=== PATIENT | female | born 1980 | race Caucasian/White ===

== ENCOUNTER → 2018-03-16 | Outpatient (CLI) | payer BC ==
--- NOTE | 2018-03-16 10:32 | XR ---
Left hip HISTORY: Pain, strain 2 views of the left hip Coverage of the acetabulum may be indicative of pincer type femoral acetabular impingement. Alignment and bone mineralization are maintained. Joint space within normal limits. No evident mass. No fractu re or dislocation. IMPRESSION: Correlate for femoral acetabular impingement.
== END | disposition home or self-care (01) ==
LOC: RADXRMAIN 08:19
PROVIDERS: ATTEND Internal Medicine
DX: M25.552 Pain in left hip (principal)
CPT/HCPCS: 73502

== ENCOUNTER → 2018-12-25 | Outpatient (CLI) | payer BC ==
--- NOTE | 2018-12-25 12:52 | CT ---
EXAMINATION TYPE: CT brain w con DATE OF EXAM: 12/25/2018 COMPARISON: None HISTORY: sudden onset headache x9 days CT DLP: 809.2 mGycm Automated exposure control for dose reduction was used. CONTRAST: CT scan of the head is performed with IV Contrast, patient injected with 100 mL of Isovue 300. FINDINGS: There is no abnormal enhancing mass or midline shift identified. The ventricles and sulci are within normal limits in size. The globes are intact and the visualized sinuses are clear. Partially empty sella turcica. IMPRESSION: 1. There is a partially empty sella turcica. This can occasionally be seen with benign increased intr acranial pressure. Recommend follow-up MRI.
== END ==
LOC: RADCTMAIN 11:30
PROVIDERS: ATTEND Internal Medicine
DX: E23.6 Other disorders of pituitary gland (principal)
CPT/HCPCS: 70460; Q9967

== ENCOUNTER 2018-12-26 11:55 | Emergency (ER) | payer BC ==
[2018-12-26 12:13] VITALS: TEMP 98.3
[2018-12-26] MEDS ORDERED: KETOROLAC 30 MG/ML 1 ML VIAL IVP STA (12:58)
[2018-12-26] MEDS ORDERED: SODIUM CHLORIDE 0.9% 500 ML 500 ML IV STA (12:58)
[2018-12-26] MEDS ORDERED: diphenhydrAMINE 50 MG/ML 1 ML VIAL IVP STA (12:58)
[2018-12-26] MEDS ORDERED: HYDROmorphone 0.5 MG/0.5 ML SYRINGE IVP STA (12:58)
[2018-12-26] MEDS ORDERED: METOCLOPRAMIDE 5 MG/ML 2 ML VIAL IVP STA (12:58)
[2018-12-26] MEDS ORDERED: LORazepam 2 MG/ML INJ IV STA (13:48)
--- NOTE | 2018-12-26 14:01 | ED ---
Headache HPI <Alfonso Damon - Last Filed: 12/26/18 16:03> - General Mode of arrival: ambulatory Limitations: no limitations <Hannah Samuels - Last Filed: 12/26/18 16:23> - General Chief Complaint: Headache Stated Complaint: Headache Time Seen by Provider: 12/26/18 12:17 - History of Present Illness Initial Comments: 38-year-old female who denies past medical history presenting today for chief complaint of headache 10 days. Patient states she has had a headache for the past 10 days. She states she has had periodic headaches on and off for years however nothing this persistent. She states that she was evaluated yesterday at her primary care provider office for the headache or CT was obtained. She states she was told she had leaking fluid and was told to come to the emergency department for further evaluation. Imaging studies obtained yesterday were reviewed, findings consistent with partially empty sella turcica with the frontal diagnosis of benign increased ICP. Patient denies any changes in the characteristic of headache throughout the 10 days, she states is throbbing in the posterior aspect of her head towards the back of her eyes. She has a trauma vomiting. She denies neck stiffness, fever chills night sweats or upper respiratory symptoms. Patient states that she is occasionally nauseous denies diplopia. Denies any muscle weakness or loss of sensation. She states she has been taking Motrin and Fioricet and Imitrex and even Valium for relief, she states none of these medications have seemed to help. She states she did have a small labs and symptoms Tuesday after taking a Fioricet however symptoms returned later that evening. Remaining review of systems negative. Upon arrival patient appears uncomfortable holding hands over eyes. (Hannah Samuels) - Related Data Home Medications Medication Instructions Recorded Confirmed [place]/APAP/Caf/Cod [id number] 1 cap PO TID PRN 12/26/18 12/26/18 [Fioricet w/Cod [id number]] Ibuprofen 800 mg PO TID PRN 12/26/18 12/26/18 Ondansetron Odt [Zofran ODT] 4 mg PO BID PRN 12/26/18 12/26/18 SUMAtriptan SUCCINATE [Imitrex] 50 mg PO DAILY PRN 12/26/18 12/26/18 predniSONE 20 mg PO DAILY 12/26/18 12/26/18 Allergies Allergy/AdvReac Type Severity Reaction Status Date / Time No Known Allergies Allergy Verified 12/26/18 13:54 Review of Systems ROS Other: All systems not noted in ROS Statement are negative. <Alfonso Damon - Last Filed: 12/26/18 16:03> ROS Other: All systems not noted in ROS Statement are negative. <Hannah Samuels - Last Filed: 12/26/18 16:23> ROS Statement: Those systems with pertinent positive or pertinent negative responses have been documented in the HPI. Past Medical History Past Medical History: No Reported History History of Any Multi-Drug Resistant Organisms: None Reported Past Surgical History: Appendectomy, Cholecystectomy, Hysterectomy, Orthopedic Surgery Additional Past Surgical History / Comment(s): (L) hip replacement, facial reconstruction Past Psychological History: No Psychological Hx Reported Smoking Status: Current every day smoker Past Alcohol Use History: Rare Past Drug Use History: None Reported <Hannah Samuels - Last Filed: 12/26/18 16:23> General Exam Limitations: no limitations <Hannah Samuels - Last Filed: 12/26/18 16:23> - General Exam Comments Initial Comments: General: The patient is awake and alert, in no distress, and does not appear acutely ill. Eye: +3 mm pupils are equal, round and reactive to light, extra-ocular movements are intact. No nystagmus. There is normal conjunctiva bilaterally. No signs of icterus. Ears, nose, mouth and throat: There are moist mucous membranes and no oral lesions. Neck: The neck is supple, there is no tenderness or JVD. Cardiovascular: There is a regular rate and rhythm. No murmur, rub or gallop is appreciated. Respiratory: Lungs are clear to auscultation, respirations are non-labored, breath sounds are equal. No wheezes, stridor, rales, or rhonchi. Gastrointestinal: Soft, non-distended, non-tender abdomen without masses or organomegaly noted. There is no rebound or guarding present. Musculoskeletal: Normal ROM, no tenderness. Strength 5/5. Sensation intact. Pulses equal bilaterally 2+. Neurological: A&O x 3. CN II-XII intact, memory intact to immediately, intermediate and retirement recall. Able to follow simple verbal. Able to name a common object (pen). High quality, labial (pa) and lingual (la) speech. Low quality posterior pharynx/larynx (ga) voice sounds. Able to express general knowledge. No hemineglect or inattention noted. Finger agnosia (-) and spatially oriented. Light touch and temperature sensation present over the face, chest, abdomen, back, UE bilaterally, and LE bilaterally. Able to localize point during point localization b/l and extinction. No visible bulk atrophy, hypertrophy, fasciculations, or myoclonus of the UE or LE b/l. Full PROM in UE and LE b/l. Bilateral muscle strength 5/5 for the following muscles: deltoid, biceps, triceps, brachioradialis, wrist extensors/flexor, hip flexor, hip abductors/adductors, hamstrings, quadriceps, feet dorsiflexors/plantar flexors. Finger to nose, finger to the examiners finger, and heel to [place] coordinated and accurate b/l. Coordinated and even demonstration of hand flip, finger to thumb, and toe tap b/l. Gait is coordinated and even in stride with tandem, toe and heel walk. Maintains balance with monopedal stance. (-) Romberg. (-) pronator drift. No nuchal rigidity. (-) Brudzinskis and Kernig signs. Skin: Skin is warm and dry and no rashes or lesions are noted. Psychiatric: Cooperative, appropriate mood & affect, normal judgment. (Hannah Samuels) Course Vital Signs 12/26/18 12:07 Temperature 98.3 F Pulse Rate 78 Respiratory 18 Rate Blood Pressure 129/86 O2 Sat by Pulse 98 Oximetry Procedures - Lumbar Puncture Consent Obtained: written consent Indication for Procedure: headache Patient Position: sitting upright/leaning forward Skin Prep: Povidone-Iodine 1% Local Anesthetic Used: Lidocaine 1% Spinal Needle Gauge: 20G Spinal Needle Length: 3.5in Interspace Used: L4-L5 Opening Pressure (mmHg): 40 Fluid Initially Obtained: clear Complications: none Patient Tolerated Procedure: well <Alfonso Damon - Last Filed: 12/26/18 16:03> - Lumbar Puncture Additional Comments: Stylette used, opening pressure is elevated. (Alfonso Damon) Medical Decision Making <Hannah Samuels - Last Filed: 12/26/18 16:23> - Medical Decision Making 38-year-old male presenting for headache [address] obtained yesterday revealing partially empty sella turcica concerning for benign increase in cranial pressure. Patient is obese, female middle-aged, concern for pseudotumor cerebri. Patient was given medications in attempt to alleviate headache. Patient states after Dilaudid, Toradol, Benadryl and Reglan headache 5 out of 10 initially 8-9 out of 10. After discussing treatment options including lumbar puncture patient would like to proceed with lumbar puncture consent was obtained and written. Lumbar puncture was performed by attending provider Dr. Damon. Procedure went without complication. Opening pressure 40, supportive of increased pressure causing patient headache. After lumbar puncture patient states another significant improvement in headache. Patient however procedure well. Patient denies any infectious symptoms such as fever chills night sweats neck stiffness negative Brudzinski Kernig no meningeal irritation signs. Patient has a scheduled appointment with Dr. Ford, neurologist on . 2 days from today. After imaging studies were reviewed by attending provider, lumbar puncture performed, improvement of patient's symptoms, no concern for infectious etiology, and negative imaging study for mass/CVA/hemorrhage, and no focal neurological deficits myself as well as attending provider. Patient is stable for discharge with outpatient neurology follow-up. Return parameters were discussed at length the patient verbalizes understanding. (Hannah Samuels) Disposition <Alfonso Damon - Last Filed: 12/26/18 16:03> Is patient prescribed a controlled substance at d/c from ED?: No Time of Disposition: 16:08 <Hannah Samuels - Last Filed: 12/26/18 16:23> Clinical Impression: Elevated intracranial pressure, Headache Disposition: HOME SELF-CARE Condition: Good Instructions (If sedation given, give patient instructions): Idiopathic Intracranial Hypertension (ED) Additional Instructions: Please use medication as discussed. Please follow-up with neurology in next 1-2 days as discussed, medication discussed include Acetazolamide. Please return to emergency room if the symptoms increase or worsen or for any other concerns. Referrals: Marion Cedillo MD [Primary Care Provider] - 1-2 days Doug Ford DO [STAFF PHYSICIAN] - 1-2 days
[2018-12-26 16:31] VITALS: BP 109/65; PULSE 85; RESP 16
== END 2018-12-26 16:25 | disposition home or self-care (01) ==
LOC: EC 11:55
DX: R51 Headache (principal); G93.2 Benign intracranial hypertension; E66.9 Obesity, unspecified; Z68.41 Body mass index [BMI] 40.0-44.9, adult; F17.200 Nicotine dependence, unspecified, uncomplicated; Z79.52 Long term (current) use of systemic steroids; Z96.642 Presence of left artificial hip joint
CPT/HCPCS: 99283; 62270; 96374; 96375 ×4; 96361 ×2; J2060; J1200; J2765; J1885; J1170